=== PATIENT | female | born 1995 | race Caucasian/White ===

== ENCOUNTER 2016-08-22 20:47 | Emergency (ER) | payer OTHER ==
--- NOTE | ~2016-08-22 | US134 ---
[facility] A Service of [facility] & [facility] RADIOLOGY TEXT RESULTS PATIENT: KODY CLAYTON LOCATION: SED : [birth year] UNIT #: [id number] AGE: [address]: Augusta Shah SEX: F ORDER DR: [id number] [address] [address] [id number] MR#: [id number] Acc #: [id number] NAME: KODY CLAYTON : 1995 SEX: F STUDY DATE/TIME: 08/22/2016 21:21 UNIT: SED ROOM: STUDY DESCRIPTION: US Transvaginal Attending Physician: Augusta Shah Pa-C Referring Physician: Babatunde Majano M.D. Ordering Physician: Augusta Shah Pa-C Primary Care Physician: Stacy Zepeda MEDICAL IMAGING REPORT This report is preliminary unless electronic signature is present. EXAM Transvaginal pelvic ultrasound. DATE OF EXAM 08/22/2016 HISTORY Abnormal vaginal bleeding for 4 months. Last menstrual period 04/19/2016 per patient. G0. Beta hCG has not been performed at the time of this examination. Patient states that she has been bleeding daily since 04/19/2016, and again expelling clots of blood today. History of polycystic ovarian syndrome for [address] of abdomen and pelvis without contrast, 04/29/2012. No prior pelvic ultrasound at this institution for comparison. FINDINGS Uterus measures 7.9 x 3.8 x 5.0 cm. Endometrial bilayer thickness is just slightly above upper limits normal at 17 mm (upper limits normal for the secretory phase. This cycle is considered between 7 to 16 mm). No focal endometrial lesion is identified. No fluid is demonstrated within the endometrial canal. No myometrial abnormality is seen. No intrauterine gestational sac is identified. The left ovary measures 3.8 x 1.7 x 3.0 cm without cystic or solid lesion. A couple of tiny follicles are seen within the left ovary. Left ovary demonstrates normal color spectral Doppler flow. Right ovary measures 3.9 x 1.7 x 2.6 cm with a few peripheral follicles, without cystic or solid abnormality. The right ovary demonstrates normal color and spectral Doppler flow. [facility]. [facility] A Service of [facility] & [facility] RADIOLOGY TEXT RESULTS PATIENT: KODY CLAYTON LOCATION: DONTE : [birth year] UNIT #: [id number] AGE: [address]: Augusta Shah SEX: F ORDER DR: IMPRESSION 1. The endometrial bilayer thickness measures just slightly over upper limits of normal, 17 mm, but no focal endometrial or myometrial abnormalities identified. No fluid is seen within endometrial canal. 2. Normal sonographic appearance of each ovary with normal flow documented to each ovary. 3. No pelvic free fluid. Dictated by... Caron Parmar M.D. THIS IS AN ELECTRONICALLY VERIFIED REPORT Caron Parmar M.D. at 08/23/2016 10:07 PM Fransisca TD: 08/22/2016 23:35 JOB #: [id number] MEDICAL IMAGING REPORT Page 1 of 1
[~2016-08-22 20:47] MED LIST: METFORMIN; SYNTHROID
[2016-08-22 20:56] LABS: BASOPHIL% 0.3 % (0-2.5); EOSINOPHIL# 0.3 X10e3 (0-0.7); EOSINOPHIL% 2.2 % (0.0-7.0); HEMATOCRIT 39.8 % (35.0-45.0); LYMPHOCYTE# 3.3 X10e3 (1.0-3.5); LYMPHOCYTE% 28.9 % (17.0-45.0); MEAN CELL VOLUME 76.6 FL (83-96); MEAN CORPUSCULAR HGB CONC 32.6 g/dL (30-36); MEAN PLATELET VOLUME 8.2 FL (6.5-11.5); MONOCYTE# 0.5 X10e3 (0-1.0); MONOCYTE% 4.6 % (3.0-12.0); NEUTROPHIL# 7.2 X10e3 (1.5-7.1); PLATELET COUNT 289 X10e3 (140-420); RED CELL DISTRIBUTION WIDTH 15.7 % (11.0-15.5); WHITE BLOOD COUNT 11.3 X10e3 (4.0-10.5)
[2016-08-22 20:58] LABS: DIFF IND NO
[2016-08-22 21:14] LABS: ALBUMIN SERUM 3.9 g/dL (3.5-5.0); BILIRUBIN,TOTAL 0.4 mg/dL (0.2-2.0); CALCIUM SERUM 9.2 mg/dL (8.4-10.2); CREATININE SERUM 0.8 mg/dL (0.6-1.4); GLOM FILT RATE Estimated 106.2 mL/min (>60); POTASSIUM 3.9 mmol/L (3.5-5.1); PROTEIN TOTAL SERUM 7.5 g/dL (6.0-8.3)
== END 2016-08-22 22:35 | disposition home or self-care (01) ==
LOC: SED 20:47
PROVIDERS: Physician Assistant
DX: N93.8 Other specified abnormal uterine and vaginal bleeding (principal); E11.9 Type 2 diabetes mellitus without complications; E03.9 Hypothyroidism, unspecified; E28.2 Polycystic ovarian syndrome
CPT/HCPCS: 36415; 76830; 80053; 84703; 85025; 99284